=== PATIENT | male | born 1940 | race Caucasian/White ===

== ENCOUNTER → 2016-11-10 | Outpatient (CLI) | payer OTHER ==
--- NOTE | 2016-11-10 14:40 | PCVCIMAG ---
APPROVED REPORT Indications Stenosis Doppler Spectral Velocity Analysis PSV / EDVPSV / EDV ECA (R) 74 / 12 cm/sECA (L) 64 / 8 cm/s dICA (R) 79 / 22 cm/sdICA (L) 63 / 25 cm/s Leny (R) 56 / 27 cm/smICA (L) 46 / 22 cm/s pICA (R) 64 / 12 cm/spICA (L) 52 / 15 cm/s Bulb (R) 51 / 9 cm/sBulb (L) 57 / 12 cm/s dCCA (R) 68 / 10 cm/sdCCA (L) 74 / 21 cm/s mCCA (R) 76 / 18 cm/smCCA (L) 81 / 20 cm/s Vert (R) 38 / 12 cm/sVert (L) 41 / 11 cm/s ICA/CCA 1.16ICA/CCA 0.85 Basic Measurements Blood Pressure: Pulses: Right Left RightLeft Brachial(Sitting) 130/62pbHc878/78mmHgTemporal Real Time B-Mode Imaging Vert. (R)AntegradeVert. (L)Antegrade Findings The right carotid bulb has mild plaque. The right proximal internal carotid artery shows no significant stenosis. The right common carotid artery shows no significant stenosis. The right external carotid artery shows no significant stenosis. The left carotid bulb has mild plaque. The left proximal internal carotid artery shows no significant stenosis. The left common carotid artery shows no significant stenosis. The left external carotid artery shows no significant stenosis. Conclusion 1. Mild plaquing involving both carotid arteries without significant stenosis 2. Antegrade vertebral flow
--- NOTE | 2016-11-10 16:53 | PCVCIMAG ---
APPROVED REPORT Exam: Stress Echocardiogram Indication: CAD s/p CABG, Hypertension Patient Location: Echo lab Stress Nurse: Cherelle Fuentes RN HR: 62 bpm Rhythm: NSR with sinus arrhythmia Medical History Medical History: CAD s/p CABG, HTN, Hyperlipidemia Previous Cardiac Procedures: CABG Pretest Chest Pain Characteristics: No chest pain Exercise History: Physically active Procedure The patient underwent an Exercise Stress Test using the Konrad Protocol. Blood pressure, heart rate, and EKG were monitored. An Echocardiogram was performed by sterile instrument technician in four stages in quad fashion. At peak stress, four selected images were obtained and placed side by side with resting images for comparison. Stress Test Details Stress Test: Exercise stress testing was performed using a Konrad protocol. HR Resting HR: 62 bpmMax Heart Rate (APMHR): 146 bpm Max HR Achieved: 139 bpmTarget HR (85% APMHR): 124 bpm % of APMHR: 95 Recovery HR: 65 bpm HR response to stress: Normal HR response to stress BP Resting BP: 130/72 mmHg Max BP: 180/64 mmHg Recovery BP: 130/70 mmHg ECG Resting ECG: Sinus Rhythm, nonspecific T abnormalities Stress ECG: Sinus Rhythm Arrhythmia: sinus arrhythmia Recovery ECG: Sinus Rhythm with sinus arrhythmia Recovery ST Change: Upsloping ST depression Recovery ST Deviation: 0.45 mm Recovery Arrhythmia: sinus arrhythmia Clinical Reason for Termination: Maximal effort Stress Symptoms: none Exercise duration: 9 min sec Highest Stage Achieved: Stage 3: 3.4 mph at 14% grade. Exercise capacity: 10.1 METs Overall Exercise Capacity for Age: Average Scale: Active Angina Score: None Pre-Stress Echo The resting Echocardiogram showed normal left ventricular contractility with an estimated Ejection Fraction of about 55-60%. The resting Echocardiogram demonstrated wall motion abnormality in the septum consistent with s/p CABG . Normal wall motion in all segments on baseline images. Post-Stress Echo The stress Echocardiogram showed normal left ventricular contractility with an estimated Ejection Fraction of about 65-70%. Normal augmentation of wall motion in all segments on post stress images. Clinical No clinical or ECG evidence for ischemia. Conclusion Clinical Response: Non-ischemic Exercise Capacity: Average Stress ECG Response: Non-ischemic Stress Echo Images: Non-ischemic No clinical, EKG or echocardiographic evidence for ischemia. Normal stress echocardiogram with maximal exercise stress. <Conclusion> No clinical, EKG or echocardiographic evidence for ischemia. Normal stress echocardiogram with maximal exercise stress.
== END | disposition home or self-care (01) ==
LOC: PCVCIMAG 13:59
PROVIDERS: ATTEND Internal Medicine Cardiovascular Disease
DX: I65.23 Occlusion and stenosis of bilateral carotid arteries (principal); E78.5 Hyperlipidemia, unspecified; I25.10 Atherosclerotic heart disease of native coronary artery without angina pectoris; I10 Essential (primary) hypertension; E78.00 Pure hypercholesterolemia, unspecified; I49.8 Other specified cardiac arrhythmias; Z95.1 Presence of aortocoronary bypass graft
CPT/HCPCS: 93325; 93351; 93880

== ENCOUNTER → 2018-02-01 | Outpatient (CLI) | payer OTHER | END | disposition home or self-care (01) | LOC: PCVCCLINIC 13:45 | PROVIDERS: ATTEND Internal Medicine Cardiovascular Disease | DX: I25.10 Atherosclerotic heart disease of native coronary artery without angina pectoris (principal); R94.31 Abnormal electrocardiogram [ECG] [EKG]; E78.00 Pure hypercholesterolemia, unspecified; I10 Essential (primary) hypertension; I77.9 Disorder of arteries and arterioles, unspecified; M79.10 Myalgia, unspecified site; R07.89 Other chest pain; Z79.82 Long term (current) use of aspirin; Z72.89 Other problems related to lifestyle | CPT/HCPCS: 80061; 93005; G0463 ==

== ENCOUNTER → 2018-03-22 | Outpatient (CLI) | payer OTHER ==
--- NOTE | 2018-03-22 14:50 | PCVCIMAG ---
APPROVED REPORT Study performed: 03/22/2018 13:43:57 Exam: Stress Echocardiogram Indication: CAD s/p CABG Patient Location: Echo lab Stress Nurse: Cherelle Fuentes RN Status: routine Ht: 6 ft 3 in HR: 66 bpm BP: 122/80 mmHg Rhythm: NSR Medical History Medical History: Hyperlipidemia Procedure The patient underwent an Exercise Stress Test using the Konrad Protocol. Blood pressure, heart rate, and EKG were monitored. An Echocardiogram was performed by crime scene technician in four stages in quad fashion. At peak stress, four selected images were obtained and placed side by side with resting images for comparison. Stress Test Details Stress Test: Exercise stress testing was performed using a Konrad protocol. HR Resting HR: 66 bpmMax Heart Rate (APMHR): 145 bpm Max HR Achieved: 136 bpmTarget HR (85% APMHR): 123 bpm % of APMHR: 93 Recovery HR: 105 bpm HR response to stress: Normal HR response to stress BP Resting BP: 122/80 mmHg Max BP: 182/80 mmHg Recovery BP: 146/80 mmHg BP response to stress: Normal blood pressure response to stress. ECG Resting ECG: Sinus Rhythm Stress ECG: Sinus Rhythm Recovery ECG: Sinus Rhythm Clinical Reason for Termination: Maximal effort Exercise duration: 7 min 39 sec Highest Stage Achieved: Stage 3: 3.4 mph at 14% grade. Exercise capacity: 10.10 METs Overall Exercise Capacity for Age: Normal Pre-Stress Echo The resting Echocardiogram showed normal left ventricular contractility with an estimated Ejection Fraction of about >55%. Normal wall motion in all segments on baseline images. Post-Stress Echo The stress Echocardiogram showed normal left ventricular contractility with an estimated Ejection Fraction of about 60-65%. Normal augmentation of wall motion in all segments on post stress images. Clinical No clinical or ECG evidence for ischemia. Conclusion Clinical Response: Non-ischemic Exercise Capacity: Average Stress ECG Response: Non-ischemic Stress Echo Images: Non-ischemic The left ventricle is normal in size and wall thickness in both the rest and stress images. Other Information Study Quality: Adequate <Conclusion> The left ventricle is normal in size and wall thickness in both the rest and stress images.
== END | disposition home or self-care (01) ==
LOC: PCVCIMAG 13:16
PROVIDERS: ATTEND Internal Medicine Cardiovascular Disease
DX: I25.10 Atherosclerotic heart disease of native coronary artery without angina pectoris (principal); I10 Essential (primary) hypertension; E78.00 Pure hypercholesterolemia, unspecified; E78.5 Hyperlipidemia, unspecified; Z95.1 Presence of aortocoronary bypass graft
CPT/HCPCS: 93325; 93351